=== PATIENT | male | born 1955 | race Hispanic/Latino ===

== ENCOUNTER 2024-12-17 01:34 | Emergency (ER) | payer MEDICARE, OTHER ==
[~2024-12-17] VITALS: Ht 188 cm; Wt 79.8 kg
[2024-12-17] MEDS ORDERED: LIPITOR20 MG PO (02:00)
[2024-12-17] MEDS ORDERED: IBLOOD GLUCOSE TEST STRIP 1 EA TEST XX ONE (02:00)
[2024-12-17] MEDS ORDERED: LISINOPRIL10 MG PO (02:00)
[2024-12-17 02:01] LABS: BASOPHILS 1.4 % (0-2); EOSINOPHILS 8.8 % (0-6); HEMATOCRIT 31.6 % (35.0-50.0); HEMOGLOBIN 10.6 g/dL (12.0-18.0); LYMPHOCYTES 31.1 % (24-44); MCH 28.7 (27-36); MCHC 33.5 g/dl (30-36); MCV 85.7 fl (81-99); MONOCYTES 7.4 % (0-12); NEUTROPHILS 51.3 % (39-80); PLATELET COUNT 216 K/uL (140-440); RBC 3.68 M/ul (4.3-5.7); RDW 15.6 (10.5-15.0)
[2024-12-17] MEDS ORDERED: AMLODIPINE BESYL5 MG PO (02:01)
[2024-12-17] MEDS ORDERED: RENVELA800 MG PO (02:02)
[2024-12-17 02:32] LABS: INR 1.13 (0.80-1.30); PROTIME 14.4 Sec (11.2-14.2)
[2024-12-17 02:42] LABS: ALBUMIN 2.9 g/dL (3.4-5.0); ALBUMIN/GLOBULIN RATIO 0.58 (1.1-2.4); ANION GAP 12.6 (7-21); BILIRUBIN, TOTAL 0.5 ng/dL (0.2-1.0); BUN/CREATININE RATIO 7.52 (6.0-28.6); CALCIUM 7.4 mg/dL (8.5-10.1); CREATININE, SERUM 6.91 mg/dL (0.70-1.30); MAGNESIUM 1.9 mg/dL (1.8-2.4); PHOSPHORUS, INORGANIC 4.7 mg/dL (2.5-4.9); POTASSIUM 4.6 mmol/L (3.5-5.1); PROTEIN, TOTAL 7.9 g/dL (6.4-8.2)
--- OUTSIDE RECORDS SUMMARY | 2024-12-17 02:56 | XMS ---
PreManage Notification: JUANA KENNEDY Security It Security Consultant Events No recent Security Events currently on file CRITERIA MET - [facility] - 2 Visits in 30 Days CARE PROVIDERS -, Mal[place]- Dentist: Medical Surgical Tech [facility] PHONE: [phone] LAM HEATH Emergency Medicine Current PHONE: [phone] ROSAURA WANG Internal Medicine Current PHONE: [phone] LEEANNE PRICE Nurse Practitioner: Family Current PHONE: [phone] BENITO GRAFF Nurse Practitioner Current PHONE: [phone] Jacquelin has no Care Guidelines for this patient. Shruthi VISIT COUNT (12 MO.) [address] [place] [address] [facility] [place] TOTAL 4 NOTE: Visits indicate total known visits. ED/UCC VISIT TRACKING (12 MO.) 12/17/2024 01:36 [facility] TYPE: Emergency COMPLAINT: - SHAKY 12/16/2024 20:45 [facility] TYPE: Emergency DIAGNOSES: - Essential (primary) hypertension - HIGH BP [facility] DIAGNOSES: - Fracture of unspecified part of neck of left femur, initial encounter for closed fracture - FALL HIT RIGHT SIDE HEAD 02/21/2024 11:55 [facility] TYPE: Emergency DIAGNOSES: - Calculus of ureter - Chronic kidney disease, unspecified - Hyperkalemia - Hypo-osmolality and hyponatremia - Urinary tract infection, site not specified - sent by [employer] office INPATIENT VISIT TRACKING (12 MO.) [facility] DIAGNOSES: - Acidosis, unspecified - Acute kidney failure, unspecified - Acute posthemorrhagic anemia - Anemia in chronic kidney disease - Anemia, unspecified - Chronic kidney disease, stage 3 unspecified - Chronic kidney disease, stage 5 - Chronic kidney disease, unspecified - End stage renal disease - Fracture of unspecified part of neck of left femur, initial encounter for closed fracture - Gastric ulcer, unspecified as acute or chronic, without hemorrhage or perforation - Hypertensive chronic kidney disease with stage 1 through stage 4 chronic kidney disease, or unspecified chronic kidney disease - Hypertensive chronic kidney disease with stage 5 chronic kidney disease or end stage renal disease - Iron deficiency anemia, unspecified - Other fluid overload - Proteinuria, unspecified - Hip fracture [email or web address]
[2024-12-17] MEDS ORDERED: CALCIUM GLUCONATE 1,000 MG/10 ML VIAL IV ONE (03:30)
[2024-12-17] MEDS ORDERED: SINEMET 10-1001 EACH PO (03:30)
[2024-12-17 04:12] VITALS: BP 165/74
--- NOTE | 2024-12-17 22:22 | EKG ---
[facility] [address] [facility] [address] [place] [address] Signed Poor data quality, interpretation may be adversely affected Normal sinus rhythm Left axis deviation Low voltage QRS Cannot rule out Anterior infarct , age undetermined Abnormal ECG No previous ECGs available Confirmed by Avis Kidd MD () on 12/17/2024 10:21:54 PM Electronically Signed By: AVIS KIDD MD 12/17/242221 PATIENT NAME: JUANA KENNEDY Electrocardiogram DATE OF : 55 PHYSICIAN: AVIS KIDD MD REPORT #: [id number] REPORT IS CONFIDENTIAL AND NOT TO BE RELEASED WITHOUT AUTHORIZATION
== END 2024-12-17 04:14 | disposition home or self-care (01) ==
LOC: ED 01:34
PROVIDERS: Family Medicine
DX: F19.239 Other psychoactive substance dependence with withdrawal, unspecified (principal); G25.2 Other specified forms of tremor; I10 Essential (primary) hypertension; Z79.899 Other long term (current) drug therapy
CPT/HCPCS: 36415; 70450; 80053; 83735; 84100; 85025; 85610; 93005; 93010; 96374; 99285-25; J0612

== ENCOUNTER 2025-03-15 12:21 | Emergency (ER) | payer MEDICARE, MEDICAID ==
[~2025-03-15] VITALS: Ht 188 cm; Wt 79.0 kg
[~2025-03-15 12:21] MED LIST: AMLODIPINE BESYL5 MG PO; LIPITOR20 MG PO; LISINOPRIL10 MG PO; RENVELA800 MG PO; SINEMET 10-1001 EACH PO
[2025-03-15 13:31] LABS: BASOPHILS 0.7 % (0-2); EOSINOPHILS 1.2 % (0-6); HEMOGLOBIN 11.3 g/dL (12.0-18.0); LYMPHOCYTES 17.2 % (24-44); MCH 29.5 (27-36); MCHC 34.2 g/dl (30-36); MCV 86.3 fl (81-99); MONOCYTES 7.8 % (0-12); NEUTROPHILS 73.1 % (39-80); PLATELET COUNT 179 K/uL (140-440); RBC 3.82 M/ul (4.3-5.7); RDW 16.8 (10.5-15.0)
[2025-03-15 13:48] LABS: ALBUMIN 3.3 g/dL (3.4-5.0); ALBUMIN/GLOBULIN RATIO 0.65 (1.1-2.4); BILIRUBIN, TOTAL 0.7 mg/dL (0.2-1.0); BUN/CREATININE RATIO 7.81 (6.0-28.6); CALCIUM 8.2 mg/dL (8.5-10.1); CREATININE, SERUM 10.62 mg/dL (0.70-1.30); MAGNESIUM 2.7 mg/dL (1.8-2.4); PROTEIN, TOTAL 8.4 g/dL (6.4-8.2)
[2025-03-15 13:53] LABS: ANION GAP 14.9 (7-21)
[2025-03-15 13:58] LABS: POTASSIUM 6.9 mmol/L (3.5-5.1)
[2025-03-15] MEDS ORDERED: Insulin Regular, Human 100 UNIT/ML ML IV ONE (14:15)
[2025-03-15] MEDS ORDERED: ALBUTEROL SULFATE 0.5% 2.5 MG/0.5 ML VIAL INH ONE (14:15)
[2025-03-15] MEDS ORDERED: SODIUM ZIRCONIUM CYCLOSILICATE 10 GM PACK PO ONE (14:15)
[2025-03-15] MEDS ORDERED: SODIUM BICARBONATE 50 MEQ/50 ML SYR IV ONE (14:15)
[2025-03-15] MEDS ORDERED: CALCIUM CHLORIDE 1,000 MG/10 ML SYR IV ONE (14:15)
[2025-03-15] MEDS ORDERED: DEXTROSE 50% 50 ML SYR IV ONE (14:15)
[2025-03-15 15:59] VITALS: BP 168/71
--- NOTE | 2025-03-15 19:14 | EKG ---
[facility] [address] [facility] [place] [address] Signed Normal sinus rhythm Right superior axis deviation Low voltage QRS Cannot rule out Anterior infarct (cited on or before 17-DEC-2024) Abnormal ECG When compared with ECG of 17-DEC-2024 01:50, No significant change was found Confirmed by Bienvenido Lala MD ([id number]) on 03/15/2025 7:13:55 PM Electronically Signed By: BIENVENIDO LALA MD 03/15/25 1914 PATIENT NAME: LEON GALLOWAYJUANA Electrocardiogram DATE OF : 55 PHYSICIAN: BIENVENIDO LALA MD REPORT #: [id number] REPORT IS CONFIDENTIAL AND NOT TO BE RELEASED WITHOUT AUTHORIZATION
== END 2025-03-15 15:57 | disposition short-term general hospital (02) ==
LOC: ED 12:21
PROVIDERS: Emergency Medicine
DX: E87.5 Hyperkalemia (principal); I12.9 Hypertensive chronic kidney disease with stage 1 through stage 4 chronic kidney disease, or unspecified chronic kidney disease; N18.9 Chronic kidney disease, unspecified
CPT/HCPCS: 36415; 71045; 80053; 83735; 85025; 93005; 93010; 96374; 96375; 99285-25; J1815